=== PATIENT | male | born 1960 | race Caucasian/White ===

== ENCOUNTER 2024-01-15 08:22 | Emergency (ER) | payer BC, SELFPAY ==
[2024-01-15 08:24] VITALS: BP 152/92
--- NOTE | 2024-01-15 10:09 | ED.GENMED ---
History of Present Illness
General
Chief Complaint: Musculo-Skeletal Complaint
Source: patient
Exam Limitations: none
Time Seen by Provider: 01/15/24 09:44
Nursing documentation reviewed up to this point in time: agreed with
History of Present Illness
History of Present Illness:
Patient is a 63-year-old male presenting with left ankle injury. Patient states that yesterday around 11 PM he stepped in a pothole across on the road causing him to fall. He did not hit his head or lose consciousness. He was able to get up
independently and felt okay yesterday ambulating. Patient states this morning he has been having significant shooting pains in his left ankle. He has been unable to weight-bear this morning due to pain. Patient denies any numbness/tingling in
left lower extremity. Patient denies any pain in left knee.
Of note�patient does think that he had a mild injury to his ankle about a month ago when stepping off a curb awkwardly. He is concerned that he may have further injured his ankle.
No other injuries reported.
Past History
Past History
ED Past Medical History: Arrthythmia (Atrial fib) and Other (Back pain)
ED Past Surgical History: None
Social History
Tobacco: Non-smoker
Alcohol: None
Personal:
Living: with family
Family History
Family History: Other (father with what sounds like viral cardiomyopathy)
Review of Systems
Review of Systems
Allergies reviewed?: Yes
All Other Systems: ROS reviewed and negative except as documented in HPI and ROS
Phy Exam
Physical Exam
Physical Exam:
Vitals: Mildly hypertensive. Otherwise vital signs stable.. Afebrile
General: Patient is well appearing, no acute distress
Skin: Warm and dry, no rashes or lesions
Head: Normocephalic, atraumatic
Throat: Protecting airway
Neck: Normal ROM, no cervical spine tenderness
Cardiac: Regular rate
Pulm: No apparent respiratory distress
Abdomen: Nondistended
Extremities: Mild diffuse edema of left ankle near lateral malleolus. Tenderness just anterior to left lateral malleolus and ATFL insertion site. Mild tenderness near base of fifth metatarsal. No tenderness in medial malleolus, midfoot, or
calcaneus. Achilles intact. Patient has excellent ability to plantarflex/dorsiflex left ankle. Left knee atraumatic and nontender with full range of motion. Sensation fully intact in left lower extremity. great distal pulses in left lower
extremity.
Neuro: Grossly intact
Psychiatric: Normal affect.
Course
Orders/Labs/Results
Orders:
Orders
01/15/24 08:26
Ankle, left 3 view CR [CR Ankle - Left Min 3 Views ] Urgent
Comment:
Reason For Exam: pain after rolling ankle
01/15/24 08:27
Foot, Left 3 View [CR Foot - Left Min 3 Views] Urgent
Comment:
Reason For Exam: pain after rolling ankle
01/15/24 09:55
Ibuprofen [Motrin] 600 mg PO NOW STA
01/15/24 10:25
Ortho Boot Left- Treatment ONCE
Short or tall?: Tall
01/15/24 10:43
Crutches-Treatment ONCE
Vital Signs
Initial and Last Documented VS:
Initial Vital Signs
Temp Pulse Resp BP Pulse Ox
97.7 F 69 16 152/92 99
01/15/24 08:24 01/15/24 08:24 01/15/24 08:24 01/15/24 08:24 01/15/24 08:24
Last Documented Vital Signs
Temp Pulse Resp BP Pulse Ox
97.7 F 69 16 152/92 99
01/15/24 08:24 01/15/24 08:24 01/15/24 08:24 01/15/24 08:24 01/15/24 08:24
MDM/Problems Addressed
Differential Diagnosis Includes:
Not limited to: Ankle sprain, ankle fracture, foot sprain, foot fracture, Achilles tendon rupture,
MDM/Problems Addressed:
63-year-old male presenting with left ankle injury sustained last night when he stepped in pothole. No head strike or other associated injuries. Patient with difficulty weightbearing today due to pain. Mildly hypertensive, otherwise vital signs
stable. Patient well-appearing. Physical exam as above. X-ray of both left ankle and left foot negative for acute fracture or dislocation. Suspect likely ankle sprain. Will place patient in Ortho boot. Crutches for weightbearing. RICE. NSAIDs
for pain. Patient will follow-up with orthopedic further evaluation�discussed may need further imaging if symptoms persist. Patient stable for discharge with Ortho follow-up. Case discussed with attending physician.
Chronic conditions affecting care:
N/A
Acute Exacerbation and/or Progression of Chronic Illness:
N/A
*Radiology
Radiology exam reviewed: preliminary read by ED provider and radiology read reviewed (No acute fracture or dislocation)
*Pulse Oximetry
Patient hypoxic: no
*EKG
Interpreted by ED Provider?: NA
*Plug And Mold Finisher Interpretation
Rate: Plug And Mold Finisher- N/A
*Critical Care Note
Total Time (30-74mins, 75-104mins- exclusive of procedures): Not Applicable
ED Attending Note
-
Portions of this chart may have been created with voice recognition software.� Occasional wrong word or��sound alike� substitutions may have occurred due to the inherent limitations of voice recognition software.
Discharge Plan
Departure
Patient Disposition: Home (Routine Discharge)
Date of Disposition: 01/15/24
Time of Disposition: 10:30
Patient with high blood pressure during this ER visit?: Yes
Condition: Good
Covid-19: Not Applicable
Discharge Problem:
Left ankle injury
Instructions: Ankle Sprain ED, BLOOD PRESSURE
Prescriptions:
No Action
No Current Medications
0
Referrals:
Jyoti Waters I., DO [Active] - Next open appointment
Luis Fernando Yuen, DO [Family Provider] -
Activity Restrictions/Additional Instructions:
RETURN TO THE EMERGENCY DEPARTMENT WITH ANY SIGNIFICANT PAIN/SWELLING OF LEFT ANKLE, NUMBNESS/TINGLING OF LEFT FOOT, WORSENING IN CURRENT SYMPTOMS, OR ANY OTHER CONCERNS
-It is important to continue to ice and elevate your left foot/ankle as often as possible. You can take Motrin/Tylenol as needed for discomfort. You should keep foot in boot for the next few weeks or until you are seen by orthopedics.
-Follow-up with orthopedics for further evaluation/management especially symptoms do not improve. You may require further imaging
Monitor your symptoms closely and return to the emergency department with any acute worsening/new symptoms
Interventions
Interventions:
*Risk Screen - Suicide Last Done: 01/15/24 08:24
*General Assessment Last Done: 01/15/24 08:24
*Neglect/Abuse Screening Last Done: 01/15/24 08:24
Discharge Date and Time
Print Language: PERSIAN
[2024-01-15] MEDS: MOTRIN 600 MG PO (10:19)
== END 2024-01-15 11:15 | disposition home or self-care (01) ==
LOC: EMR 08:22
PROVIDERS: EMERGENCY PHYSICIAN Emergency Medicine; FAMILY PHYSICIAN Family Medicine
DX: S99.912A Unspecified injury of left ankle, initial encounter (principal); X58.XXXA Exposure to other specified factors, initial encounter; I10 Essential (primary) hypertension
CPT/HCPCS: 99283; 73610; 73630

== ENCOUNTER → 2024-05-07 13:00 | Outpatient (REF) | payer BC, SELFPAY | LOC: HWRAD 13:00 | PROVIDERS: ATTENDING PHYSICIAN Physician Assistant Medical | DX: R05.3 Chronic cough (principal) | CPT/HCPCS: 71046 ==